=== PATIENT | female | born 1975 | race African-American/Black ===

== ENCOUNTER 2021-08-17 09:46 | Emergency (ER) | payer OTHER ==
[~2021-08-17] VITALS: Ht 170.2 cm; Wt 72.6 kg
[2021-08-17] MEDS ORDERED: OPTICHAMBER DI1 EACH MC (10:21)
[2021-08-17] MEDS ORDERED: KETO10TA2 PO (14:37)
== END 2021-08-17 14:43 | disposition home or self-care (01) ==
LOC: ER 09:46
DX: S93.402A Sprain of unspecified ligament of left ankle, initial encounter (principal); W05.1XXA Fall from non-moving nonmotorized scooter, initial encounter; Y93.9 Activity, unspecified; Y92.9 Unspecified place or not applicable; Y99.9 Unspecified external cause status